=== PATIENT | female | born 1985 | race Caucasian/White ===

== ENCOUNTER 2019-05-30 19:33 | Emergency (ER) | payer MEDICAID, SELFPAY ==
--- NOTE | 2019-05-30 19:42 | ED.GENADULT ---
HPI - General Adult General Chief complaint: Urogenital-Female Stated complaint: uti Time Seen by Provider: 05/30/19 19:54 Source: patient and RN notes reviewed Mode of arrival: ambulatory Limitations: no limitations History of Present Illness HPI narrative: This patient approximately 2 months ago was diagnosed as having a UTI by her physician and treated with an antibiotic which she states was a penicillin derivative. Her symptoms seem to improve but did not totally resolve. Then she started having frequency and burning of urination that began 3 days ago without any back pain. She has had no vaginal discharge or bleeding. She has not noticed any hematuria. She is otherwise felt well without any ear pain, no nasal drainage, no sore throat, no fever, no cough. She has had no nausea, no vomiting, no diarrhea. She has no history of pyelonephritis or kidney stones. Related Data Allergies Allergy/AdvReac Type Severity Reaction Status Date / Time No Known Allergies Allergy Unknown Uncoded 05/30/19 19:54 Review of Systems Review of Systems: Narrative: CONSTITUTIONAL: Denies fever, chills, or sweats. Noncontributory except as pertains to the past medical history and history of present illness. EYES: Denies visual changes, redness, or discharge. ENT: Denies rhinorrhea, congestion, sore throat, or otalgia. CARDIOVASCULAR: Denies chest pain, palpitations, or edema. RESPIRATORY: Denies cough or dyspnea. GASTROINTESTINAL: Denies abdominal pain, nausea, vomiting, or diarrhea. GENITOURINARY: Denies dysuria or hematuria. SKIN: Denies rash or itching. MUSCULOSKELETAL: Denies back pain, joint pain, or myalgia. NEUROLOGIC: Denies headache, numbness, or weakness. PSYCHIATRIC: Denies anxiety or depression. [facility] Family History Family History (Updated 01/11/17 @ 15:30 by DOCTOR UNKNOWN) Mother Family history of thyroid disease Father Hypertension Social History Social History Smoking status: Never smoker Alcohol intake: never Gender identity (if verbalized by the patient): Female Comments At time of signature, I have reviewed and agree with nursing past medical, surgical, social, and family history.Please see nursing chart for further information. There is no relevant family history pertinent to the presenting complaint. Exam Narrative: Exam Narrative: GENERAL: Well-appearing, well-nourished, and in no acute distress. HEAD: Normocephalic, atraumatic. EYES: PERRLA and EOMI. EARS: TM's clear bilaterally and the canals are clear. NOSE: Nares clear, no rhinorrhea or epistaxis. THROAT:Mucous membranes moist.Oropharynx normal without erythema or exudates. NECK: Supple. No adenopathy of the neck, supraclavicular, axillary, or inguinal areas. RESPIRATORY: No respiratory distress. Airway patent. Respirations non-labored. Clear to auscultation. There are no wheezes, no rales, no retractions, no use accessory muscle respirations. Patient's not cyanotic and not dyspneic. The pulse ox on room air is 99% current temperature is 98.9. HEART: Regular rate and rhythm. No murmur heard. Normal peripheral pulses. ABDOMEN: Soft, nontender, nondistended, normal active bowel sounds.No masses. No rebound or guarding, No organomegaly. There is no CVA pain. No pain McBurney's point. She has a negative Ambrose sign and negative Rovsing sign. There are no pulsatile masses no audible bruits. EXTREMITIES: No clubbing/cyanosis/ edema. Normal strength & range of motion. SKIN: Warm, dry.Normal color. There are no skin rash or skin lesions. Patient is well-nourished well-developed and has moist mucous membranes and no tenting of the skin. NEURO: Alert and oriented. CN 2-12 grossly intact. No focal deficits. PSYCH: Normal mood and affect. Course Vital Signs Vital signs: Patient is afebrile and the other vital signs within normal limits. Medical Decision Making MDM Narrative Medical decision making narrative: Possible UTI. Lab Data Lab results narr
[2019-05-30 19:46] VITALS: BP 133/86; PULSE 92; RESP 16; TEMP 37.2; O2SAT 99
== END 2019-05-30 20:05 | disposition home or self-care (01) ==
PROVIDERS: Emergency Provider Family Medicine; PCP Emergency Medicine
DX: N30.00 Acute cystitis without hematuria (principal); F41.9 Anxiety disorder, unspecified
CPT/HCPCS: 81003; 87077; 87086; 87088; 99213; G0463

== ENCOUNTER 2020-02-22 13:00 | Emergency (ER) | payer OTHER, SELFPAY ==
[2020-02-22 13:09] VITALS: BP 97/78; PULSE 102; RESP 18; TEMP 37.4; O2SAT 99
--- NOTE | 2020-02-22 13:30 | ED.FEMALEGU ---
HPI - Female Genitourinary General Chief complaint: Urogenital-Female Stated complaint: UTI Time Seen by Provider: 02/22/20 13:16 Source: patient and RN notes reviewed Mode of arrival: ambulatory Limitations: no limitations History of Present Illness HPI Narrative: Patient presents today with a 2-week history of urinary frequency, urgency, lower abdominal pressure, and occasional incontinence. She denies dysuria, hematuria. Reports that she has tried drinking less tea and has increased her water and cranberry juice intake, but reports that this has not made any change in her symptoms. Reports frequent UTIs. History of anxiety. Related Data Home Medications Medication Instructions Recorded Confirmed alprazolam [Xanax] 0.5 mg PO BID 02/22/20 02/22/20 Allergies Allergy/AdvReac Type Severity Reaction Status Date / Time No Known Allergies Allergy Unknown Uncoded 02/22/20 13:19 Review of Systems Review of Systems: Narrative: CONSTITUTIONAL: Denies body aches, fever, chills, or sweats. EYES: Denies visual changes, redness, or discharge. ENT: Denies rhinorrhea, congestion, sore throat, or otalgia. CARDIOVASCULAR: Denies chest pain, palpitations, or edema. RESPIRATORY: Denies cough or dyspnea. GASTROINTESTINAL: Denies abdominal pain, nausea, vomiting, or diarrhea. GENITOURINARY: Denies dysuria or hematuria.+ Frequency, urgency SKIN: Denies rash, itching, or wounds. MUSCULOSKELETAL: Denies back pain, joint pain, or myalgia. NEUROLOGIC: Denies headache, numbness, tingling, or weakness. PSYCH: Denies depression or anxiety. [facility] Past Medical History Medical History (Updated 02/22/20 @ 13:41 by Linsey Westbrook, [facility], ) Anxiety Depression Screening cholesterol level Family History Family History Mother Family history of thyroid disease Father Hypertension Social History Social History Smoking status: Never smoker Alcohol intake: never Gender identity (if verbalized by the patient): Female Comments At time of signature, I have reviewed and agree with nursing past medical, surgical, social and family history unless otherwise noted. Please see nursing chart for further information. There is no relevant family history pertinent to the presenting complaint Exam Narrative: Exam Narrative: GENERAL: Well-appearing, well-nourished, and in no acute distress. HEAD: Normocephalic, atraumatic. EYES: EOMI. No redness or drainage. Conjunctivae normal. ENT: Mucous membranes pink and moist. NECK: Normal AROM. CHEST: No respiratory distress. Clear to auscultation. HEART: Regular rate and rhythm. No murmur appreciated. Normal peripheral pulses. ABDOMEN: Soft, nondistended, normal active bowel sounds. -CVAT. Mild tenderness to the suprapubic area MUSCULOSKELETAL: No bony tenderness. EXTREMITIES: Normal range of motion. No edema. SKIN: Warm, dry, no rash. Capillary refill normal. Normal skin turgor. NEURO: No focal deficits. Alert and oriented x3. Gait steady. PSYCH: Normal affect. No signs of depression or anxiety. Course Course Emergency Course: Patient's urine dipstick is negative except for trace amount of blood, and symptoms have been present for at least 2 weeks. Due to length of symptoms, type of symptoms, and findings on urine dip, I feel that acute UTI is unlikely. Will culture urine and call pt to start on abx if results are positive. Recommend follow up with PCP or urology regarding symptoms. Vital Signs Vital signs: Vital Signs Temperature 99.3 F 02/22/20 13:09 Pulse Rate 102 H 02/22/20 13:09 Respiratory Rate 18 02/22/20 13:09 Blood Pressure 97/78 L 02/22/20 13:09 Pulse Oximetry 99 02/22/20 13:09 Temperature 99.3 F 02/22/20 13:09 Pulse Rate 102 H 02/22/20 13:09 Respiratory Rate 18 02/22/20 13:09 Blood Pressure 97/78 L 02/22/20 13:09 Pulse Oximetry 99
== END 2020-02-22 13:35 | disposition home or self-care (01) ==
PROVIDERS: Emergency Provider Nurse Practitioner; PCP Emergency Medicine
DX: R35.0 Frequency of micturition (principal); R39.15 Urgency of urination; F41.9 Anxiety disorder, unspecified
CPT/HCPCS: 81003; 87086; 99213; G0463

== ENCOUNTER 2020-08-19 18:00 | Emergency (ER) | payer OTHER, SELFPAY ==
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
[2020-08-19 19:15] VITALS: BP 113/77; PULSE 101; RESP 18; TEMP 37.1; O2SAT 99
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
--- NOTE | 2020-08-19 19:57 | PC.NURSE ---
Patient in radiology.
[2020-08-19] MEDS: CYCLOBENZAPRINE HCL 5 MG TABLET PO (20:09)
[2020-08-19 20:48] VITALS: BP 111/69; PULSE 96; RESP 18; TEMP 36.4; O2SAT 99
--- NOTE | 2021-06-08 13:55 | PC.NURSE ---
[facility] Coroner arrived
--- NOTE | 2021-06-08 13:56 | PC.NURSE ---
Delmi Gayle - [facility] Coroner here
== END 2020-08-19 20:49 | disposition home or self-care (01) ==
PROVIDERS: Emergency Provider General Practice; PCP Emergency Medicine
DX: S16.1XXA Strain of muscle, fascia and tendon at neck level, initial encounter (principal); S39.012A Strain of muscle, fascia and tendon of lower back, initial encounter; F41.9 Anxiety disorder, unspecified; M43.07 Spondylolysis, lumbosacral region; V43.52XA Car driver injured in collision with other type car in traffic accident, initial encounter
CPT/HCPCS: 72072; 72100; 72125; 81025; 99284; A9270

== ENCOUNTER 2021-06-08 12:56 | Emergency (ER) | payer OTHER, SELFPAY ==
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
--- NOTE | 2021-06-08 13:14 | PC.NURSE ---
Spoke with Sandrine Press Bucker Office about - Press Bucker on her way
--- NOTE | 2021-06-08 13:50 | PC.NURSE ---
Copy Reader arrived to department
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
== END 2021-06-08 16:00 | disposition expired ==
PROVIDERS: Emergency Provider Emergency Medicine
DX: S11.021A Laceration without foreign body of trachea, initial encounter (principal); I46.8 Cardiac arrest due to other underlying condition; X78.1XXA Intentional self-harm by knife, initial encounter
CPT/HCPCS: 92950; 99285; J0171; J7030; J7120